=== PATIENT | female | born 1965 | race Caucasian/White ===

== ENCOUNTER 2016-06-14 21:42 | Emergency (ER) | payer BC ==
[~2016-06-14] VITALS: Ht 162.6 cm; Wt 118.2 kg
[2016-06-14 21:59] LABS: HEMATOCRIT 41.2 % (36.0-46.0); MCH 28.3 PG (29.0-34.0); MCHC 33.5 G/DL (30.0-36.0); MCV 84.6 FL (83-99); MEAN PLAT.VOLUME 9.5 uM^3 (9.5-12.4); PLATELET COUNT 340 K/uL (156-360); RBC DIS.WIDTH-SD 39.8 % (39-53); RED BLOOD COUNT 4.87 M/uL (3.80-5.20)
[2016-06-14 22:00] LABS: WHITE BLOOD COUNT 14.1 K/uL (4.1-10.2)
[2016-06-14 22:08] LABS: CHLORIDE 106 mEq/L (99-109); POTASSIUM 4.2 mEq/L (3.7-5.4); SODIUM 138 mEq/L (136-147)
[2016-06-14 22:09] LABS: GLUCOSE 145 mg/dL (70-99)
[2016-06-14 22:11] LABS: ANION GAP 13 MEQ/L (2-14)
[2016-06-14 22:13] LABS: GFR ESTIMATE (CALCULATED) > 59 mL/min/
[2016-06-14 22:14] LABS: UREA NITROGEN (BUN) 19 mg/dL (9-23)
[2016-06-14 22:23] LABS: TROP-I INTERPRETATION NEGATIVE; TROPONIN-I < 0.01 ng/mL (0.0-0.30)
[2016-06-14 22:35] LABS: MAGNESIUM 2.2 mg/dL (1.3-2.7)
[2016-06-14 23:53] LABS: ADD MIUA? YES; BILIRUBIN NEGATIVE; BLOOD SMALL; COLOR COLORLESS ((YELLOW)); GLUCOSE (STRIP) NEGATIVE; KETONES NEGATIVE; LEUKOCYTES NEGATIVE; NITRITE NEGATIVE; PROTEIN (STRIP) NEGATIVE; SPECIFIC GRAVITY 1.003 (1.000-1.030); UROBILINOGEN 0.2 MG/DL (0.2-1.0)
[2016-06-14 23:55] LABS: INTERNAL CONTROL VALID? YES
[2016-06-15 00:11] LABS: BACTERIA RARE /HPF; EPITHELIAL CELLS RARE /HPF; MUCUS NONE SEEN /LPF; RED BLOOD CELLS 0-5 /HPF (0-5); UCUL ADDED? NO; WHITE BLOOD CELLS 0-5 /HPF (0-5)
[2016-06-15 01:08] VITALS: BP 115/81
== END 2016-06-15 01:11 | disposition home or self-care (01) ==
LOC: EME 21:42
PROVIDERS: Emergency Medicine
DX: I47.1 Supraventricular tachycardia (principal); R00.2 Palpitations; D72.829 Elevated white blood cell count, unspecified
CPT/HCPCS: 71010; 80048; 81003; 83735; 84443; 84484; 84703; 85027; 93005; 99281; 99285; J0153; J7030

== ENCOUNTER 2017-07-09 20:51 | Inpatient (IN) | payer BC ==
[~2017-07-09] VITALS: Ht 160 cm; Wt 123.4 kg
[~2017-07-09 20:51] MED LIST: CALCIUM 500 MG1 EACH PO; CELEBREX200 MG PO; CRESTOR10 MG PO; FISH OIL 1,0001 EAC7 PO; MIRENA1 EACH IY; OMEPRAZOLE40 M1 PO; TYLENOL REGULA325 MG PO; WOMEN'S DAILY1 EAC4 PO; WOMEN'S DAILY1 EAC5 PO
[2017-07-10 09:15] VITALS: BP 109/59
[2017-07-10 16:38] VITALS: BP 122/58
[2017-07-10 20:20] VITALS: BP 135/66
[2017-07-11 00:10] VITALS: BP 100/50
[2017-07-11 03:25] VITALS: BP 110/53
[2017-07-11 07:08] LABS: HEMATOCRIT 37.9 % (36.0-46.0); HEMOGLOBIN 12.3 G/DL (11.9-15.5); MCH 27.8 PG (29.0-34.0); MCHC 32.5 G/DL (30.0-36.0); MCV 85.6 FL (83-99); PLATELET COUNT 303 K/uL (156-360); RBC DIS.WIDTH-CV 13.1 % (11.8-14.6); RED BLOOD COUNT 4.43 M/uL (3.80-5.20); WHITE BLOOD COUNT 11.3 K/uL (4.1-10.2)
[2017-07-11 07:29] LABS: CHLORIDE 104 MEQ/L (99-109); CREATININE 0.5 MG/DL (0.6-1.3); GFR ESTIMATE (CALCULATED) > 59 mL/min/; GLUCOSE 123 mg/dL (70-99); MAGNESIUM 1.7 mg/dl (1.3-2.7); PHOSPHORUS 2.1 mg/dL (2.5-4.9); POTASSIUM 4.1 MEQ/L (3.7-5.4); SODIUM 137 MEQ/L (136-147); UREA NITROGEN (BUN) 8 mg/dL (9-23)
[2017-07-11 07:48] VITALS: BP 108/53
[2017-07-11 11:08] VITALS: BP 119/56
[2017-07-11 15:41] VITALS: BP 128/84
[2017-07-11 20:07] VITALS: BP 121/62
[2017-07-12 00:25] VITALS: BP 119/60
[2017-07-12 03:50] VITALS: BP 120/60
[2017-07-12 07:12] LABS: CHLORIDE 106 MEQ/L (99-109); CREATININE 0.5 MG/DL (0.6-1.3); GFR ESTIMATE (CALCULATED) > 59 mL/min/; HEMATOCRIT 36.6 % (36.0-46.0); HEMOGLOBIN 11.7 G/DL (11.9-15.5); MAGNESIUM 1.8 mg/dl (1.3-2.7); MCH 27.6 PG (29.0-34.0); MCV 86.3 FL (83-99); PHOSPHORUS 1.6 mg/dL (2.5-4.9); PLATELET COUNT 317 K/uL (156-360); POTASSIUM 4.1 MEQ/L (3.7-5.4); RBC DIS.WIDTH-CV 13.3 % (11.8-14.6); RBC DIS.WIDTH-SD 41.5 % (39-53); RED BLOOD COUNT 4.24 M/uL (3.80-5.20); SODIUM 138 MEQ/L (136-147); UREA NITROGEN (BUN) 9 mg/dL (9-23); WHITE BLOOD COUNT 13.8 K/uL (4.1-10.2)
[2017-07-12 07:14] VITALS: BP 133/62
[2017-07-12 07:16] LABS: GLUCOSE 88 mg/dL (70-99)
[2017-07-12 11:15] VITALS: BP 104/57
== END 2017-07-12 12:13 | disposition home or self-care (01) | DRG 620 ==
LOC: ENRESERV 20:51 → 2SOUTH 07-10 08:16 → ENRESERV 07-10 15:47 → 2EASTP 07-10 16:29
PROVIDERS: Surgery
PROC: 0DB64Z3 Excision of Stomach, Percutaneous Endoscopic Approach, Vertical (ICD-10-PCS; principal; 2017-07-10)
DX: E66.01 Morbid (severe) obesity due to excess calories (principal); Z68.43 Body mass index [BMI] 50.0-59.9, adult; I47.1 Supraventricular tachycardia; E78.2 Mixed hyperlipidemia; K21.9 Gastro-esophageal reflux disease without esophagitis; F32.9 Major depressive disorder, single episode, unspecified; M19.90 Unspecified osteoarthritis, unspecified site; Z87.891 Personal history of nicotine dependence
CPT/HCPCS: 80048; 82948; 83735; 84100; 85027; C9113; J0131; J0690; J1100; J1170; J1644; J1650; J1815; J1885; J2250; J2270; J2405; J2710; J2765; J3480; J7050; J7120; Q0175; S0020